=== PATIENT | female | born 1985 | race Caucasian/White ===

== ENCOUNTER 2018-06-19 15:38 | Emergency (ER) | payer SELFPAY ==
[~2018-06-19] VITALS: Ht 165.1 cm; Wt 78.9 kg
[2018-06-19 15:46] VITALS: BP 135/84; PULSE 90; RESP 20; Ht 165.1 cm; Wt 78.9 kg
== END 2018-06-19 19:17 | disposition left against medical advice (07) ==
LOC: FTE 15:38
DX: Z53.21 Procedure and treatment not carried out due to patient leaving prior to being seen by health care provider (principal)